=== PATIENT | male | born 1995 | race Caucasian/White ===

== ENCOUNTER → 2016-03-08 | Outpatient (CLI) | payer BC ==
--- NOTE | 2016-03-08 18:36 | US ---
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 Difficulty swallowing GLAND SIZE: Right Lobe: 4.6 x 1.6 x 1.7 cm Overall Parenchyma: homogenous Left Lobe: 3.3 x 1.6 x 1.9 cm Overall Parenchyma: homogeneous Isthmus Thickness: 0.2 cm TECHNOLOGIST IMPRESSION: Bilateral neck scanned, no abnormal lymphadenopathy noted. No distinct nodu le seen at this time IMPRESSION: Normal thyroid sonogram. No focal thyroid abnormality seen.
== END | disposition home or self-care (01) ==
LOC: RADUSMAIN 17:54
PROVIDERS: ATTEND Family Medicine
DX: E04.1 Nontoxic single thyroid nodule (principal)
CPT/HCPCS: 76536

== ENCOUNTER → 2021-02-04 | Outpatient (CLI) | payer BC ==
[2021-02-04 19:03] LABS: Basophils # (A) 0.07 X 10*3/uL (0.00-0.10); Eosinophils # (A) 1.39 X 10*3/uL (0.04-0.35); Eosinophils % (A) 19.6 %; HCT 44.4 % (39.6-50.0); HGB 14.6 g/dL (13.0-17.0); Lymphocytes # (A) 2.91 X 10*3/uL (0.90-5.00); MCHC 32.9 g/dL (32.0-37.0); MCV 91.4 fL (80.0-97.0); Mean Platelet Volume 12.5 fL (9.5-12.2); Monocytes # (A) 0.38 X 10*3/uL (0.20-1.00); Monocytes % (A) 5.4 %; Neutrophils # (A) 2.31 X 10*3/uL (1.80-7.70); Neutrophils % (A) 32.6 %; Platelet Count 151 X 10*3/uL (140-440); RBC 4.86 X 10*6/uL (4.40-5.60); RDW 11.9 % (11.5-14.5); WBC 7.09 X 10*3/uL (4.50-10.00)
[2021-02-04 20:30] LABS: % Iron Saturation 40.99 (15.00-50.00); African American GFR (CKD) 101.9 (60.0-200.0); Albumin 4.7 g/dL (3.8-4.9); Albumin/Globulin Ratio 1.99 (1.60-3.17); Anion Gap 12.9 mmol/L (10.00-18.00); Blood Urea Nitrogen 18.4 mg/dL (9.0-27.0); Calcium 9.9 mg/dL (8.7-10.3); Carbon Dioxide 25.9 mmol/L (20.0-27.5); Globulin 2.4 g/dL (1.6-3.3); Potassium 4.6 mmol/L (3.5-5.5); Total Bilirubin 0.8 mg/dL (0.30-1.20); Total Protein 7.1 g/dL (6.2-8.2)
== END | disposition home or self-care (01) ==
LOC: LABWHC1 11:57
PROVIDERS: ATTEND Nurse Practitioner Family
DX: R19.7 Diarrhea, unspecified (principal)
CPT/HCPCS: 36415; 80053; 82306; 82607; 82728; 83540; 83550; 83630; 85025; 87045; 87046; 87338